=== PATIENT | male | born 1990 | race Caucasian/White ===

== ENCOUNTER 2022-09-02 10:24 | Emergency (ER) | payer SELFPAY ==
[~2022-09-02] VITALS: Ht 167.6 cm; Wt 75.3 kg
--- NOTE | 2022-09-02 10:30 | NUR ---
BIB [facility] C/O BACK PAIN AFTER GETTING OUT OF THE SHOWER,DENIES ANY TRAUMA/FALL. PAIN IS 8/10 ON PAIN SCALE. VITALS ARE WITHIN NORMAL LIMITS, NO RESP DISTRESS NOTED. AWAITING MD ORDERS.
[2022-09-02] MEDS ORDERED: IBUPROFEN 400 MG TABLET PO ONE (11:30)
[2022-09-02] MEDS ORDERED: CYCLOBENZAPRINE 10 MG TABLET PO ONE (11:30)
[2022-09-02] MEDS ORDERED: CYCLOBENZAPRINE 10 MG TABLET ONE (11:30)
[2022-09-02] MEDS ORDERED: LIDOCAINE 5% (PATCH) 1 EA PATCH TP SCH (11:30)
[2022-09-02] MEDS ORDERED: LIDOCAINE 5% (PATCH) 1 EA PATCH TP ONE (11:30)
[2022-09-02] MEDS ORDERED: IBUPROFEN 400 MG TABLET ONE (11:31)
[2022-09-02] MEDS ORDERED: CYCL5TAB PO ×2 (12:23→12:26)
[2022-09-02] MEDS ORDERED: LIDO30AD10 TP ×2 (12:23→12:26)
[2022-09-02] MEDS ORDERED: IBUP-1957 PO ×2 (12:23→12:26)
[2022-09-02 14:05] VITALS: BP 123/81
--- NOTE | 2022-09-02 14:05 | NUR ---
Patient discharged to home in stable condition. Written and verbal after care instructions given. Patient verbalizes understanding of instruction.
== END 2022-09-02 14:05 | disposition home or self-care (01) ==
LOC: ER 10:26 → EDSEX 10:26 → ER 14:05
DX: S39.92XA Unspecified injury of lower back, initial encounter (principal); X58.XXXA Exposure to other specified factors, initial encounter; Y93.89 Activity, other specified; Y92.89 Other specified places as the place of occurrence of the external cause; Y99.8 Other external cause status